=== PATIENT | male | born 1975 | race Caucasian/White ===

== ENCOUNTER → 2017-11-20 09:40 | Outpatient (CLI) | payer MEDICAID, SELFPAY ==
[2017-11-20 11:28] LABS: Alanine Aminotransferase 26 U/L (12-78); Albumin Level 3.9 gm/dL (3.4-5.0); Albumin/Globulin Ratio 1.2 (1.1-1.8); Alkaline Phosphatase 111 U/L (46-116); Anion Gap 11.2 mEq/L (5-15); Aspartate Amino Transferase 15 U/L (15-37); Bilirubin,Total 0.3 mg/dL (0.2-1.0); Blood Urea Nitrogen 13 mg/dL (7-18); Calcium 8.9 mg/dL (8.5-10.1); Carbon Dioxide 28 mmol/L (21.0-32.0); Chloride 105 mmol/L (98-107); Chol/HDL Ratio 2.4 (1-3.5); Cholesterol 150 mg/dL (140-200); Creatinine,Serum 0.85 mg/dL (0.70-1.30); Estimated Glomerular Filt Rate 99 ml/min (>60); GFR (African American) 120 ML/MIN (>60); Globulin 3.2 gm/dl (1.3-3.2); Glucose 97 mg/dL (74-106); HDL Cholesterol 62 mg/dL (27-67); LDL Cholesterol 80 mg/dL (0-130); Potassium 4.2 mmoL/L (3.5-5.1); Sodium 140 mmol/L (136-145); Total Protein,Serum 7.1 gm/dL (6.4-8.2); Triglycerides 40 mg/dL (30-200); VLDL Cholesterol 8 mg/dL (0-40)
== END ==
PROVIDERS: Visit Provider Nurse Practitioner Family
DX: Z00.00 Encounter for general adult medical examination without abnormal findings (principal)
CPT/HCPCS: 36415; 80053; 80061

== ENCOUNTER → 2018-01-06 11:30 | Outpatient (CLI) | payer MEDICAID, SELFPAY ==
--- NOTE | 2018-01-06 11:38 | XR_ITS ---
XR chest 2V HISTORY: ITS.REASON: HEMOPTYSIS ORDERING PHYSICIAN: Alexis Mackenzie MD PATIENT AGE: 42 years COMPARISON: None FINDINGS: The cardiomediastinal silhouette and pulmonary vascularity are within normal limits. The lungs are clear without infiltrates, suspicious nodules, or pleural effusions. No acute bony abnormalities. IMPRESSION: Negative chest, no acute finding
== END ==
PROVIDERS: PCP Internal Medicine Adolescent Medicine; Visit Provider Internal Medicine Adolescent Medicine
DX: R04.2 Hemoptysis (principal)
CPT/HCPCS: 71046

== ENCOUNTER → 2021-02-13 09:55 | Outpatient (CLI) | payer OTHER, SELFPAY ==
[2021-02-13 11:03] LABS: Alanine Aminotransferase 38 U/L (12-78); Albumin Level 4.2 g/dl (3.5-5.0); Albumin/Globulin Ratio 1.4 (1.1-1.8); Alkaline Phosphatase 88 U/L (38-126); Anion Gap 12.9 mEq/L (5-15); Aspartate Amino Transferase 27 U/L (17-59); Bilirubin,Total 0.3 mg/dl (0.2-1.3); Blood Urea Nitrogen 14 mg/dl (9-20); Calcium 9.8 mg/dl (8.4-10.2); Carbon Dioxide 32 mmol/L (22.0-30.0); Chloride 102 mmol/L (98-107); Chol/HDL Ratio 2.1 (1-3.5); Cholesterol 150 mg/dl (140-200); Estimated Glomerular Filt Rate 92 ml/min (>60); GFR (African American) 111 ML/MIN (>60); Globulin 2.9 g/dL (1.3-3.2); Glucose 111 mg/dl (74-100); HDL Cholesterol 70 mg/dl (40-60); Potassium 4.9 mmoL/L (3.5-5.1); Sodium 142 mmol/L (136-145); Total Protein,Serum 7.1 g/dl (6.3-8.2); Triglycerides 65 mg/dl (30-150); VLDL Cholesterol 13 mg/dL (0-40)
[2021-02-13 11:14] LABS: Direct LDL Cholesterol 70.38 mg/dL (100-129)
== END ==
PROVIDERS: Visit Provider Internal Medicine Adolescent Medicine
DX: Z00.00 Encounter for general adult medical examination without abnormal findings (principal)
CPT/HCPCS: 36415; 80053; 80061

== ENCOUNTER → 2021-02-21 19:16 | Outpatient (CLI) | payer OTHER, SELFPAY | PROVIDERS: PCP Nurse Practitioner Family; Visit Provider Nurse Practitioner Family | DX: G47.33 Obstructive sleep apnea (adult) (pediatric) (principal); R40.0 Somnolence; R06.83 Snoring | CPT/HCPCS: 95806 ==

== ENCOUNTER → 2022-08-22 10:52 | Outpatient (CLI) | payer OTHER, SELFPAY ==
[2022-08-22 13:09] LABS: Amphetamine/Metha Screen,Urine Negative ng/ml (<1000); Barbiturates Screen,Urine Negative ng/ml (<200); Benzodiazepines Screen,Urine Negative ng/ml (<200); Cannabinoid Screen,Urine Positive ng/ml (<50); Cocaine Screen,Urine Negative ng/ml (<300); Methadone Screen,Urine Negative ng/ml (<300); Opiate Screen,Urine Negative ng/ml (<300); Phencyclidine Screen,Urine Negative ng/ml (<25)
== END ==
PROVIDERS: PCP Internal Medicine Adolescent Medicine; Visit Provider Nurse Practitioner Psychiatric/Mental Health
DX: Z02.83 Encounter for blood-alcohol and blood-drug test (principal)
CPT/HCPCS: 80305

== ENCOUNTER 2023-03-26 06:26 | Day surgery (SDC) | payer OTHER, SELFPAY ==
[2023-03-22 14:57] VITALS: BMI 32.5
[2023-03-26] VITALS (13 sets, daily range): BP systolic 117–162; BP diastolic 79–103; PULSE 58–85; RESP 18–19; TEMP 36.3–36.8; O2SAT 93–100
--- NOTE | 2023-03-26 07:10 | EXP.ANES.CKL ---
[facility] Disclaimer: The information contained in this section may have been updated after the patient was seen, as this information can be updated by other users. Medical History Attention deficit disorder (ADD) in adult Surgical History History of local excision of skin lesion History of tonsillectomy and adenoidectomy Family History Other Family history of colon cancer Social History Smoking Status: Former smoker alcohol intake: current substance use type: crack/cocaine, heroin and methamphetamine current occupational status: employed Travel in the last 8 weeks: None number of children: 2 caffeine: Yes [facility] Anesthesia Checklist Patient Identification Patient Identification: Arm Band and Family Structural Data Admitted From: Home Planned Operative Procedure/s: colonoscopy Consent for Planned Operative Procedure(s) Verified: Yes Verified Documents: Surgical Consent and History and Physical NPO Status Verified Time NPO: 00:00 Additional verifications Anesthesia Reactions: No Airway Assessment Mallampati Score:: Class II C-Spine Mobility Assessed: Yes TMJ Mobility Assessed: Yes Dentition: Dentures-good fit Neurological Assessment Level of Consciousness: Awake and Alert Anesthesia Plan Anesthesia Risk discussed: Yes Anesthesia Plan: Verified ASA Class: I Anesthesia Type: MAC
--- NOTE | 2023-03-26 07:53 | P.PCN_ITS ---
Procedure: Date: 03/26/23 Patient Date of :: 1975 Procedure Performed:: Colonoscopy with polypectomy Indications:: Screening Performing Provider:: Esau Lassiter MD Referring Provider:: . Sedation:: Monitored anesthesia care Procedure:: After informed consent was obtained the patient was taken to the endoscopy suite. Sedation ensued after the patient was transferred to the left lateral decubitus position. Pulse, blood pressure, and oxygen saturation were monitored throughout the procedure. Digital rectal exam revealed no significant abnormality. The colonoscope was placed in position. The entire colon was evaluated. The colonoscope was carefully removed and the patient was transferred to recovery in stable condition. Please see findings and specimens below for detail. Findings:: Bowel preparation moderate (poor in isolated areas) Moderate tortuosity Moderate to significant spasticity (worse in sigmoid) Mild sigmoid diverticulosis Polyps (see specimens) Specimens:: Complex lobulated large sessile polyp at 40 cm (cold snare, cold biopsy forceps, and tattoo) Recommendations:: Timing of repeat colonoscopy is pending pathology will likely be around 6-12 months with extended bowel preparation secondary to size/nature of polyp, spasti city/tortuosity, and limitations in preparation Complications:: No immediate Estimated blood obtained (mL): 1 Colonoscopy Component Colonoscopy Component Was a colonoscopy performed during today's procedure?: Yes Recommended follow up colonoscopy of at least 10 years?: No If no, follow up colonoscopy recommended in ___ years?: (See above) Reason for not recommending >/= 10 yr follow-up interval?: (See above)
--- NOTE | 2023-03-26 08:41 | SUR.PHASEII ---
initial assessment was done at 0756. Pt is stable. The intermediate was done on the initial tab at 0806, 0816 and 0826. The patient has remained stable. Tylenol given at 0819 for a headache. Pts pain is better after Tylenol.
--- NOTE | 2023-03-26 09:36 | SUR.PHASEII ---
pt up to the bathroom, staff at side. no c/o pain voiced.
== END 2023-03-26 09:56 | disposition home or self-care (01) ==
PROVIDERS: PCP Internal Medicine Adolescent Medicine; Visit Provider Surgery
PROC: 0DJD8ZZ Inspection of Lower Intestinal Tract, Via Natural or Artificial Opening Endoscopic (ICD-10-PCS; CPT 45385; principal; 2023-03-26 07:30)
DX: Z12.11 Encounter for screening for malignant neoplasm of colon (principal); K57.30 Diverticulosis of large intestine without perforation or abscess without bleeding; K63.5 Polyp of colon
CPT/HCPCS: 45385; J2704

== ENCOUNTER 2024-09-17 09:06 | Outpatient (CLI) | payer OTHER, SELFPAY ==
[2024-09-17 10:40] LABS: Thyroid Stimulating Hormone 3.91 uIU/mL (0.465-4.68)
== END 2024-09-17 23:59 | disposition home or self-care (01) ==
LOC: LAB 09:07
PROVIDERS: PCP Nurse Practitioner Family; Visit Provider Nurse Practitioner Family
DX: R53.83 Other fatigue (principal)
CPT/HCPCS: 36415; 84443

== ENCOUNTER 2024-10-26 07:45 | Day surgery (SDC) | payer OTHER, SELFPAY ==
[2024-10-26 08:23] VITALS: BP 141/67; PULSE 68; RESP 16; TEMP 36.7; O2SAT 97; BMI 34.9
[2024-10-26] MEDS: LACTATED RINGERS 1000ML 1,000 ML 50 ML IV (08:55)
--- NOTE | 2024-10-26 09:05 | P.PNANES_ITS ---
[facility] Disclaimer: The information contained in this section may have been updated after the patient was seen, as this information can be updated by other users. Medical History (Updated 10/26/24 @ 08:27 by Violeta Johnson RN) Sleep apnea Melanoma Attention deficit disorder (ADD) in adult Surgical History History of local excision of skin lesion History of tonsillectomy and adenoidectomy Family History (Updated 10/26/24 @ 08:27 by Violeta Johnson RN) Other Cancer Colon cancer Social History (Updated 10/26/24 @ 08:29 by Violeta Johnson RN) Smoking Status: Former smoker alcohol intake: current alcohol intake frequency: a few times a week substance use type: crack/cocaine, heroin and methamphetamine current occupational status: employed Travel in the last 8 weeks?: None number of children: 2 caffeine: Yes Have you lived/traveled outside [place] in past 30 days?: No Contact w/someone who lives/traveled outside US past 30 days?: No Exposure to someone with infectious disease in past 14 days?: No Do you have a fever (greater than 100.4 F or 38 C)?: No Have you tested positive for COVID-19?: No Exposed to someone with COVID-19 in past 14 days?: No Do you have a sore throat?: No Do you have a cough?: No Do you have any weakness?: No Are you experiencing any nausea/vomitting?: No Do you have any diarrhea?: No Are you experiencing any unusual bleeding?: No Do you have any muscle aches/pain?: No Do you have any abdominal pain?: No Are you experiencing loss of taste or smell?: No [facility] Anesthesia Checklist Patient Identification Patient Identification: Arm Band Structural Data Admitted From: Home Planned Operative Procedure/s: Colonoscopy Consent for Planned Operative Procedure(s) Verified: Yes Verified Documents: Surgical Consent and History and Physical NPO Status Verified Time NPO: 00:00 Additional verifications Anesthesia Reactions: No Airway Assessment Mallampati Score:: Class II C-Spine Mobility Assessed: Yes TMJ Mobility Assessed: Yes Dentition: Good Dentition Neurological Assessment Level of Consciousness: Awake, Alert and Appropriate Anesthesia Plan Anesthesia Risk discussed: Yes Anesthesia Plan: Verified ASA Class: II Anesthesia Type: MAC
--- NOTE | 2024-10-26 09:12 | EXP.HP ---
History of Present Illness *Admission Date: 10/26/24 *Reason for visit:: Personal history of adenomatous colon polyp *History of present illness: Mr. Aldana is a 49-year-old gentleman who is here for surveillance colonoscopy. The patient did have a colonoscopy in February 2023 (Esau Lassiter M.D.) and had a lobulated polyp at 40 cm. Pathology showed hyperplastic polyp. There was a lot of colonic spasticity and exam was considered less adequate. The examination is deemed medically necessary for surveillance/screening. The patient has been seen, interviewed and examined prior to the procedure by both myself and the anesthesia provider. [facility] Disclaimer: The information contained in this section may have been updated after the patient was seen, as this information can be updated by other users. Medical History (Updated 10/26/24 @ 09:23 by Aristides Jerez II, MD) Sleep apnea Melanoma Attention deficit disorder (ADD) in adult Surgical History History of local excision of skin lesion History of tonsillectomy and adenoidectomy Family History (Updated 10/26/24 @ 08:27 by Violeta Johnson RN) Other Cancer Colon cancer Social History (Updated 10/26/24 @ 08:29 by Violeta Johnson RN) Smoking Status: Former smoker alcohol intake: current alcohol intake frequency: a few times a week substance use type: crack/cocaine, heroin and methamphetamine current occupational status: employed Travel in the last 8 weeks?: None number of children: 2 caffeine: Yes Have you lived/traveled outside [place] in past 30 days?: No Contact w/someone who lives/traveled outside [place] past 30 days?: No Exposure to someone with infectious disease in past 14 days?: No Do you have a fever (greater than 100.4 F or 38 C)?: No Have you tested positive for COVID-19?: No Exposed to someone with COVID-19 in past 14 days?: No Do you have a sore throat?: No Do you have a cough?: No Do you have any weakness?: No Are you experiencing any nausea/vomitting?: No Do you have any diarrhea?: No Are you experiencing any unusual bleeding?: No Do you have any muscle aches/pain?: No Do you have any abdominal pain?: No Are you experiencing loss of taste or smell?: No Other Medical History Have you received the Pneumonia Vaccine: No Meds Home Medications and Allergies Home Medications ?Medication ?Instructions ?Recorded ?Confirmed ?Type sod picosulf 10 mg-magnes 3.5 175 ml PO DAILY Bowel Prep 2 doses 10/13/24 10/26/24 Rx gram-citric 12 gram/175 mL oral #350 mL solution (Clenpiq) amlodipine 10 mg tablet 10 mg PO DAILY 10/26/24 10/26/24 History hydrochlorothiazide 12.5 mg capsule 0 mg PO DAILY 10/26/24 10/26/24 History New Prescriptions to Start Prescriptions: Allergies Allergy/AdvReac Type Severity Reaction Status Date / Time brompheniramine (From AdvReac Unknown Unknown Verified 10/26/24 08:19 Dimetapp DM Cold-Cough (PE)) allergy reaction dextromethorphan (From AdvReac Unknown Unknown Verified 10/26/24 08:19 Dimetapp DM Cold-Cough (PE)) allergy reaction phenylephrine (From Dimetapp AdvReac Unknown Unknown Verified 10/26/24 08:19 DM Cold-Cough (PE)) allergy reaction Exam Data for Last 24 hours Vital signs and Labs for Last 24 Hours: Temp Pulse Resp BP Pulse Ox O2 Del Method 98.1 F 68 16 141/67 H 97 Room Air 10/26/24 08:23 10/26/24 08:23 10/26/24 08:23 10/26/24 08:23 10/26/24 08:23 10/26/24 08:23 I & O for Last 24 hours: Intake & Output 10/23/24 10/24/24 10/25/24 10/26/24 23:59 23:59 23:59 23:59 Weight 280 lb Constitutional Constitutional: no acute distress *Routine HEENT Exam Head: Present normocephalic Eye: Present EOMI and PERRL ENT: Present mucous membranes moist *Routine Neck Exam Neck: Present supple; Absent lymphadenopathy *Routine Respiratory Exam Respiratory: Present CTA bilaterally *Routine Cardiovascular Exam Cardiovascular: Present RRR *Routine Abdominal Exam Abdominal: Present soft and normoactive bowel sounds; Absent tenderness *Routine Rectal Exam Rectal:: deferred *Routine Genitalia Exam Genitalia:: deferred *Routine Extremities Exam Extremities: Absent cyanosis, clubbing or edema *Routine Skin Exam Skin: Present warm; Absent rash *Routine Neurological Exam Neurological: Present alert and oriented X3 Assessment and Plan *Assessment and plan (1) Screening for colon cancer: Status: Acute Category: Medical Code(s): Z12.11 - Encounter for screening for malignant neoplasm of colon Plan A/P: 1. Screening?personal history of colon polyp (unspecified) is the preprocedural diagnosis. The patient will be anesthetized/sedated using MAC sedation. The patient has been seen and examined. Cardiac and lung assessment prior to the examination is stable. Proceed with planned screening/surveillance colonoscopy.
--- NOTE | 2024-10-26 09:26 | P.PCN_ITS ---
[facility] Procedure Note Date: 10/26/24 Time: 09:43 Procedure Note:: Colonoscopy Procedure Report: Colonoscopy with cold snare polypectomy Endoscopist: Aristides Jerez II, MD Referring physician: Alexis Mackenzie M.D. Date of Procedure: October 26, 2024 Equipment: Olympus 190 variable stiffness pediatric colonoscope Sedation: MAC sedation Indication: Mr. Aldana is a 49-year-old gentleman who is here for follow-up screening/surveillance colonoscopy. The patient did have a colonoscopy in February 2023 (Esau Lassiter M.D.) and exam was considered less than adequate because of colonic spasticity and preparation. There was a lobulated polyp and biopsy showed hyperplastic polyp. The patient reports long-term gut issues since he stopped smoking in 2017. He does get some lower abdominal discomfort and occasional bowel looseness. He reports no rectal bleeding or weight loss. He does state that his paternal grandfather had colon cancer. Procedure: Prior to the procedure, a history and physical exam was performed, and patient's medications and allergies were reviewed. The risks, benefits and alternatives of the sedation and procedure were discussed with the patient. All questions were answered and informed consent was obtained. The patient was brought to the procedure room. Patient identification and proposed procedure were verified by the physician and the nurse. The patient was placed in a left lateral decubitus position and the scope was passed under direct vision. Throughout the procedure, the patient's blood pressure, pulse, and oxygen saturations were monitored continuously. The colonoscopy was accomplished without difficulty. The patient tolerated the procedure well. Findings: On digital rectal examination there was normal rectal tone. There were no external hemorrhoids. The prostate was 2+, smooth, soft, symmetric without nodules. The colonoscope was introduced through the anal canal to the rectum and advanced to the cecum. The ileocecal valve and appendiceal orifice were identified. The scope was advanced a short distance into the ileum which appeare d grossly normal. The scope was then withdrawn into the colon. There were 2 benign polyps (cecum x 1 (4 mm) and sigmoid x 1 (3 mm)). Both of these were removed via cold snare polypectomy. The remaining cecum, ascending, transverse, descending, sigmoid and rectum were grossly normal. There were no other mucosal abnormalities identified. There was some ink tattoo in the descending colon but no discernible polyp in this region. Upon retroflexion within the rectum there were grade 1-2 internal hemorrhoids. The preparation was excellent throughout with Ponce Preparation Score of 9. The cecal time was 12 minutes. Impression: 1. Diminutive colonic polyps x 2 2. Grade 1-2 internal hemorrhoids Plan: I will follow-up the polyp histology and recommend repeat surveillance colonoscopy again in 7 to 10 years. I would encourage psyllium bulking fiber supplementation on a maintenance basis.
[2024-10-26 09:49] VITALS: BP 102/66; PULSE 91; RESP 18; TEMP 36.1; O2SAT 93
[2024-10-26 09:59] VITALS: BP 125/76; PULSE 86; RESP 16; O2SAT 96
[2024-10-26 10:09] VITALS: BP 145/82; PULSE 84; RESP 16; O2SAT 99
[2024-10-26 10:19] VITALS: BP 123/86; PULSE 82; RESP 18; O2SAT 99
== END 2024-10-26 10:23 | disposition home or self-care (01) ==
PROVIDERS: PCP Internal Medicine Adolescent Medicine; Visit Provider Internal Medicine Gastroenterology
PROC: 0DJD8ZZ Inspection of Lower Intestinal Tract, Via Natural or Artificial Opening Endoscopic (ICD-10-PCS; CPT 45378; principal; 2024-10-26 09:30)
DX: Z12.11 Encounter for screening for malignant neoplasm of colon (principal); D12.0 Benign neoplasm of cecum; K63.5 Polyp of colon; K64.0 First degree hemorrhoids; K64.1 Second degree hemorrhoids; Z80.0 Family history of malignant neoplasm of digestive organs; Z79.899 Other long term (current) drug therapy; Z88.8 Allergy status to other drugs, medicaments and biological substances; Z87.891 Personal history of nicotine dependence; Z86.0100 Personal history of colon polyps, unspecified
CPT/HCPCS: 45385; J7120